=== PATIENT | female | born 1970 | race Hispanic/Latino ===

== ENCOUNTER 2021-01-31 13:08 | Outpatient (CLI) | payer OTHER ==
--- NOTE | 2021-01-31 18:14 | Mammography Report ---
DIGITAL SCREENING MAMMOGRAM WITH CAD, 01/31/2021 CLINICAL INFORMATION / INDICATION: Routine screening mammography. TECHNIQUE: Digital bilateral 2D mammography was obtained in the craniocaudal and mediolateral obliqu e projections. This examination was interpreted with the benefit of Computer-Aided Detection analysis . COMPARISON: None FINDINGS: Breast Density: There are scattered areas of fibroglandular density. No dominant mass, suspicious calcifications, or architectural distortion in either breast. IMPRESSION: No mammographic evidence of malignancy. Follow up recommendation: Routine yearly BI-RADS Category 1: Negative. A "normal" or negative report should not discourage follow up or biopsy of a clinically significant f inding. A written summary of these findings will be mailed to the patient. The patient will be entered into a mammography reporting system which will generate a reminder letter for the patient's next appointmen t at the appropriate interval. The [employer] recommends yearly mammograms starting at age 40 and continuing as l radha as a woman is in good health. Breast MRI is recommended for women with an approximate 20-25% or greater lifetime risk of breast cancer, including women with a strong family history of breast or ova liv cancer or who have been treated for Hodgkin's disease. Signer Name: Yoon Vickers MD Signed: 01/31/2021 6:10 PM Workstation Name: [id number]
== END 2021-01-31 13:09 | disposition home or self-care (01) ==
LOC: MAMMO 13:08
PROVIDERS: ATTEND Specialist
DX: Z12.31 Encounter for screening mammogram for malignant neoplasm of breast (principal)
CPT/HCPCS: 77067

== ENCOUNTER 2021-04-06 08:21 | Outpatient (CLI) | payer OTHER ==
--- NOTE | 2021-04-06 09:52 | Ultrasound Report ---
LIMITED RUQ ABDOMINAL ULTRASOUND INDICATION / CLINICAL INFORMATION: LIVER LESIONS. COMPARISON: No relevant prior imaging study available. FINDINGS: PANCREAS: Visualized portions of the pancreas are within normal limits. ABDOMINAL AORTA: No significant abnormality. IVC: No significant abnormality. LIVER: The liver measures 15.3 cm in length. The liver demonstrates a normal echogenicity and morpho logy. PORTAL VEIN: Normal hepatopedal blood flow in the main portal vein. GALLBLADDER: The gallbladder is unremarkable. There is no cholelithiasis, gallbladder wall thickening , or pericholecystic fluid. BILE DUCTS: No significant abnormality. Common bile duct measures 4 mm. RIGHT KIDNEY: No significant abnormality visualized. FREE FLUID: None. ADDITIONAL FINDINGS: None. IMPRESSION: No significant abnormality. No hepatic lesions identified. Signer Name: Fantasma Becker MD Signed: 04/06/2021 9:47 AM Workstation Name: [id number]
== END 2021-04-06 08:22 | disposition home or self-care (01) ==
LOC: US 08:21
PROVIDERS: ATTEND Specialist
DX: K76.9 Liver disease, unspecified (principal)
CPT/HCPCS: 76705